=== PATIENT | female | born 1940 | race Caucasian/White ===

== ENCOUNTER 2024-03-09 05:33 | Day surgery (SDC) | payer OTHER ==
[2024-03-04 12:32] VITALS: BMI 45.3
[~2024-03-09 05:33] MED LIST: ACETAMINOPHEN 325 MG TABLET (FP) PO PRN
[2024-03-09] MEDS ORDERED: LIDOCAINE HCL/PF 1% SDV 5ML VIAL ONE (07:24)
[2024-03-09] MEDS ORDERED: POVIDONE-IODINE 5% OPHTHALMIC PREP 30 ML SOLUTION ONE (07:24)
[2024-03-09] MEDS ORDERED: BSS (NA/CA/MG/K) BALANCED SALT SOLUTION OPHTH SOLN 15 ML BOTTLE ONE (07:24)
[2024-03-09] MEDS ORDERED: BUPIVACAINE HCL/PF 0.75% 10 ML VIAL ONE (07:24)
[2024-03-09] MEDS ORDERED: LIDOCAINE HCL/PF 2% SDV 5ML VIAL ONE ×2 (07:24→10:09)
[2024-03-09] MEDS ORDERED: EPINEPHrine/PF 1 MG/1 ML (1:1,000) AMPULE ONE (07:44)
[2024-03-09] MEDS ORDERED: CYCLOPENTOLATE HCL 1% OPHTH SOLN 2 ML BOTTLE ONE (08:49)
[2024-03-09] MEDS ORDERED: PHENYLEPHRINE 2.5% OPTHALMIC DROP 2ML BOTTLE ONE (08:49)
[2024-03-09] MEDS ORDERED: TROPICAMIDE 1% OPHTH SOLN 15 ML BOTTLE ONE (08:49)
[2024-03-09] MEDS ORDERED: OFLOXACIN 0.3% OPHTHALMIC SOLUTION 5 ML BOTTLE ONE (08:49)
[2024-03-09] MEDS ORDERED: KETOROLAC TROMETHAMINE 0.5% EYE DROP 1 DROP DROPS ONE (08:49)
[2024-03-09 08:58] VITALS: RESP 20
[2024-03-09] MEDS: KETOROLAC TROMETHAMINE 0.5% EYE DROP 1 DROP DROPS OP SCH (09:03)
[2024-03-09] MEDS: TROPICAMIDE 1% OPHTH SOLN 15 ML BOTTLE OP SCH (09:03)
[2024-03-09] MEDS: CYCLOPENTOLATE HCL 1% OPHTH SOLN 2 ML BOTTLE OP SCH (09:03)
[2024-03-09] MEDS: PHENYLEPHRINE 2.5% OPHTH SOLN 15 ML BOTTLE OP SCH (09:04)
[2024-03-09] MEDS: OFLOXACIN 0.3% OPHTHALMIC SOLUTION 5 ML BOTTLE OP SCH (09:04)
[2024-03-09] MEDS ORDERED: PROPOFOL 20 ML ONE (10:09)
[2024-03-09] MEDS: LIDOCAINE HCL/PF 2% SDV 5ML VIAL INF ONE ×2 (10:30)
[2024-03-09] MEDS: BUPIVACAINE HCL/PF 0.75% 10 ML VIAL NR ONE ×2 (10:30)
[2024-03-09] MEDS: POVIDONE-IODINE 5% OPHTHALMIC PREP 30 ML SOLUTION OD ONE ×2 (10:38)
[2024-03-09] MEDS: LIDOCAINE HCL 1% PRESERVATIVE FREE - 30ML VIAL IJ ONE ×2 (10:42)
[2024-03-09] MEDS: BSS (NA/CA/MG/K) BALANCED SALT SOLUTION OPHTH SOLN 15 ML BOTTLE OD ONE ×2 (10:45)
[2024-03-09] MEDS: CHONDROITIN SU A/HYALUR SOD 1 KIT IO ONE ×2 (10:47)
[2024-03-09] MEDS: EPINEPHrine 1:1,000 1,000 MCG/ML ML SQ ONE ×2 (11:02)
[2024-03-09 13:38] VITALS: BP 149/57; PULSE 69; TEMP 96.6
== END 2024-03-09 12:40 | disposition home or self-care (01) ==
LOC: JASU-SURG 05:33
PROVIDERS: ATTEND Ophthalmology
PROC: 08RJ3JZ Replacement of Right Lens with Synthetic Substitute, Percutaneous Approach (ICD-10-PCS; principal; 2024-03-09 10:00)
DX: H26.9 Unspecified cataract (principal)
CPT/HCPCS: 82962; V2632